=== PATIENT | female | born 1960 | race Caucasian/White ===

== ENCOUNTER → 2020-12-23 | Outpatient (CLI) | payer OTHER | LOC: KOH-I 13:21 | DX: M54.31 Sciatica, right side (principal); I73.9 Peripheral vascular disease, unspecified; M47.816 Spondylosis without myelopathy or radiculopathy, lumbar region | CPT/HCPCS: 72100; 93925 ==

== ENCOUNTER → 2021-03-06 | Outpatient (CLI) | payer OTHER | LOC: KOH-I 13:26 | DX: M51.36 Other intervertebral disc degeneration, lumbar region (principal); M47.816 Spondylosis without myelopathy or radiculopathy, lumbar region; M51.26 Other intervertebral disc displacement, lumbar region | CPT/HCPCS: 72148 ==